=== PATIENT | female | born 1970 | race American Indian/Alaskan Native ===

== ENCOUNTER 2016-09-30 | Emergency (ER) | payer OTHER ==
--- NOTE | 2016-09-30 03:44 | Emergency Department Report ---
ED Female HPI - General Chief complaint: Skin/Abscess/Foreign Body Stated complaint: VAGINAL PAIN/SWOLLEN RISEN Time Seen by Provider: 09/30/16 03:29 Source: patient, family Mode of arrival: Ambulatory Limitations: No Limitations - History of Present Illness Initial comments: Patient here reported that she has vaginal swelling and pain that started 1 week ago. Patient states she has been having this problem since she was 6 years ago. Patient says she has had several episode of this and has been seen by [employer] multiple times with a hat to drain the fluid out of her labia. Denies any fever or chills. Reports pain is 10 out of 10. MD Complaint: other (labia) Onset/Timin -: week(s) Location: labia Radiation: non-radiating Severity: severe Severity scale (0 -10): 10 Quality: stabbing (throbbing) Consistency: constant Worsens with: movement Associated Symptoms: denies: vaginal discharge, vaginal bleeding, abdominal pain , nausea/vomiting, fever/chills, headaches, loss of appetite, dysuria, hematuria , rash, seizure, shortness of breath, syncope, weakness - Related Data Sexually active: Yes Previous Rx's Medication Instructions Recorded Last Taken Type Cephalexin [Keflex] 500 mg PO Q8HR #30 cap 09/30/16 Unknown Rx traMADol [Ultram] 50 mg PO Q6HR PRN #20 tablet 09/30/16 Unknown Rx Allergies Allergy/AdvReac Type Severity Reaction Status Date / Time No Known Allergies Allergy Verified 09/30/16 00:30 ED Review of Systems ROS: Stated complaint: VAGINAL PAIN/SWOLLEN RISEN Other details as noted in HPI Comment: All other systems reviewed and negative Constitutional: denies: chills, fever Respiratory: no symptoms reported Cardiovascular: denies: chest pain, palpitations, edema, syncope Gastrointestinal: denies: abdominal pain, nausea, vomiting Genitourinary: other (labia pain and swelling). denies: urgency, dysuria, frequency, hematuria, discharge Musculoskeletal: denies: back pain, arthralgia Skin: denies: rash Neurological: denies: headache ED Past Medical Hx - Past Medical History Previous Medical History?: No - Surgical History Past Surgical History?: Yes Additional Surgical History: tubal ligation and - Family History Family history: hypertension - Social History Smoking Status: Current Every Day Smoker Substance Use Type: None - Medications Home Medications: Home Medications Medication Instructions Recorded Confirmed Last Taken Type Cephalexin [Keflex] 500 mg PO Q8HR #30 cap 09/30/16 Unknown Rx traMADol [Ultram] 50 mg PO Q6HR PRN #20 tablet 09/30/16 Unknown Rx ED Physical Exam - General Limitations: No Limitations General appearance: alert, in no apparent distress - Head Head exam: Present: atraumatic, normocephalic, normal inspection - Eye Eye exam: Present: normal appearance, PERRL, EOMI Pupils: Present: normal accommodation - ENT ENT exam: Present: normal exam - Respiratory Respiratory exam: Present: normal lung sounds bilaterally. Absent: respiratory distress, chest wall tenderness - Cardiovascular Cardiovascular Exam: Present: normal rhythm, tachycardia, normal heart sounds - GI/Abdominal GI/Abdominal exam: Present: soft, normal bowel sounds. Absent: distended, tenderness, guarding, rebound, rigid - Rectal Rectal exam: Present: normal inspection - External exam: Present: erythema (left labia majora), swelling (F labia majora) . Absent: lesions, lacerations, ecchymosis, bleeding - Expanded Exam Expanded Female exam: Present: vulvar erythema, vulvar tenderness. Absent: vaginal laceration, tissue present in vagina, herpetic lesions, foreign body - Back Exam Back exam: Present: normal inspection, full ROM. Absent: tenderness, CVA tenderness (R), CVA tenderness (L), muscle spasm, paraspinal tenderness, vertebral tenderness, rash noted - Neurological Exam Neurological exam: Present: alert, oriented X3, normal gait, reflexes normal. Absent: motor sensory deficit - Psychiatric Psychiatric exam: Present: normal affect, normal mood - Skin Skin exam: Present: warm, dry, intact - Expanded Skin Exam Expanded Type of lesion: Present: abscess Distribution of rash: genitals Description of rash: Present: tenderness, erythematous, swelling, fluctuant, indurated ED Course Vital Signs 09/30/16 00:32 Temperature 98.6 F Pulse Rate 106 H Respiratory 18 Rate Blood Pressure 164/111 [Left] O2 Sat by Pulse 100 Oximetry Vital Signs 09/30/16 09/30/16 00:32 05:22 Temperature 98.6 F 97.8 F Pulse Rate 106 H 72 Respiratory 18 18 Rate Blood Pressure 164/111 159/102 [Left] O2 Sat by Pulse 100 100 Oximetry - Reevaluation(s) Reevaluation #1: 09/30/16 05:19 Patient given [place] 5/325 2 tablets emergency room for pain. - I & D Genitals Type of Procedure: Complex Site: left labia majora Blade Size: 11 (3 cc of lidocaine used to anesthetize the area.) I & D Procedure: betadine prep, sterile drapes applied, sterile dressing applied , no gauze wick placed Progress: Drained copious amounts of serous thin liquid from area. Patient tolerated procedure well ED Medical Decision Making - Medical Decision Making ED course: Pt here complaining of recurrent Bartholin cyst to left labia majora. See procedure note for detail an incision and drainage. Patient given her cold 5/325 mg 2 tablets emergency room prior to procedure. She tolerated procedure well. Patient discharged home to follow-up with her [employer] in 2-3 days. There is no need for packing air was very fluctuant and draining large amounts of pus like liquid fluid. I explained to patient that she needs to apply warm compresses to the site. Patient was understanding of discharge instruction discharged home with prescription for Ultram and Keflex. I also discussed the patient that her blood pressure was elevated and she needs to keep a log and take to her primary care physician for evaluation. Critical care attestation.: If time is entered above; I have spent that time in minutes in the direct care of this critically ill patient, excluding procedure time. ED Disposition Clinical Impression: Bartholin's gland abscess, Encounter for incision and drainage procedure, Elevated blood pressure (not hypertension), Encounter for smoking cessation counseling Disposition: DISCHARGED TO HOME OR SELFCARE Is pt being admited?: No Does the pt Need Aspirin: No Condition: Stable Instructions: Incision and Drainage (ED), Bartholin Cyst (ED), Abscess (ED), Hypertension (ED), How to Stop Smoking (ED) Additional Instructions: Please keep affected area clean and dry Take antibiotic as prescribed F/U with [employer] in 2-3 days Apply warm compresses to site 2-3 times a day. keep a log of your blood pressure and take to primary care physician For evaluation. Prescriptions: Cephalexin [Keflex] 500 mg PO Q8HR #30 cap traMADol [Ultram] 50 mg PO Q6HR PRN #20 tablet PRN Reason: Pain Referrals: PRIMARY CARE, [Primary Care Provider] - 3-5 Days Forms: Accompanied Note, Work/School Release Form(ED)
[2016-09-30] MEDS ORDERED: NORCO 5/325 ONE (04:48)
[2016-09-30] MEDS ORDERED: XYLOCAINE 1% MPF 5 mL ONE (04:48)
[2016-09-30] MEDS ORDERED: NORCO 5/325 PO ONE (04:52)
[2016-09-30] MEDS ORDERED: XYLOCAINE 1% MPF 5 mL INFILTRATI ONE (04:52)
[2016-09-30 05:45] VITALS: BP 157/102
== END 2016-09-30 05:47 | disposition home or self-care (01) ==
LOC: ED
DX: N75.1 Abscess of Bartholin's gland (principal); Z71.6 Tobacco abuse counseling; R03.0 Elevated blood-pressure reading, without diagnosis of hypertension; F17.200 Nicotine dependence, unspecified, uncomplicated